=== PATIENT | female | born 1975 | race Caucasian/White ===

== ENCOUNTER 2019-04-20 04:58 | Inpatient (IN) | payer MEDICARE ==
[~2019-04-20] VITALS: Ht 162.6 cm; Wt 90.7 kg
--- NOTE | ~2019-04-20 | CON ---
[address] [address] CONSULTATION Name: LEXUSMANUEL M Room: [address] IN ..#: [id number] Admission: 04/20/19 Attend Phys: Gill Braga Discharge: Date of : 77 Report #: [id number] THIS REPORT FOR: //name// CC: FAM physician/PCP Mitch Zapata DATE OF SERVICE: 04/20/2019 CONSULTING PHYSICIAN: Mitch Zapata MD. REASON FOR CONSULTATION: End-stage kidney disease. HISTORY OF PRESENT ILLNESS: A 44-year-old female with a history of end-stage kidney disease, on hemodialysis Friday, Friday and Friday in [place]. Due to holiday schedule, her last dialysis was on Friday. Her next dialysis was scheduled for today. She comes in with severe left knee pain and evidence of a distal femur fracture. Plan is for her to undergo surgery today. 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 She currently does not have any other complaints other than pain related to the fracture. REVIEW OF SYSTEMS: Constitutional, psych, heme, eyes, ENT, respiratory, cardiac, GI, , endocrine, all negative except as documented above. PAST MEDICAL HISTORY: History of seizures, hysterectomy, and history of a nephrectomy. MEDICATIONS: Reviewed. SOCIAL HISTORY: Positive for tobacco. FAMILY HISTORY: Not pertinent to current clinical case. PHYSICAL EXAMINATION: VITAL SIGNS: Blood pressure 114/66, respirations 18, and temperature 37.3, pulse 102. GENERAL: No acute distress. EYES: Open. EARS: Externally normal. NECK: Supple. CARDIOVASCULAR: Regular rate. LUNGS: No crackles. ABDOMEN: Soft. MUSCULOSKELETAL: Left knee tender. PSYCHIATRIC: Awake, alert. LABORATORY DATA: White cell count 4.8, hemoglobin 10.1, [place] [address] CONSULTATION Name: MANUEL ALBERTS Gill Room: [address]#: [id number] Admission: 04/20/19 Attend Phys: Gill Braga Discharge: Date of : 77 Report #: [id number], potassium 4.4, chloride 96, bicarbonate 26, BUN 85, creatinine 10.1, glucose 126, calcium 6.7, albumin 2.9. ASSESSMENT AND PLAN: 1. End-stage kidney disease, on hemodialysis Friday, Friday and Friday in [place]. Due to the holiday schedule, she dialyzed on Friday and then was to dialyze again on Friday this week. She is currently dialyzing in the [place], [place] while visiting family here. 2. Femur fracture. Orthopedics is evaluating. 3. Anemia. 4. Hypocalcemia. Phosphorus value not available. 5. Hypoalbuminemia with an albumin of 2.9. PLAN: The patient is to undergo surgery today. We will schedule a short dialysis to help remove uremic toxins and minimize risk of bleeding. We would avoid morphine for pain management. Fentanyl would be a good choice. We will follow again tomorrow to see if she needs any additional dialysis. Otherwise, the next dialysis will be on . Renally dose all medications. We will follow along with you. Thank you for requesting my opinion in the care and management of this patient. By: [id number] Martínez MD /nt
--- NOTE | ~2019-04-20 | CON ---
[address] [address] CONSULTATION Name: MANUEL ALBERTS Room: [address] IN M.R.#: [id number] Admission: 04/20/19 Attend Phys: Gill Braga Discharge: 04/21/19 Date of : 77 Report #: [id number] THIS REPORT FOR: //name// CC: KEVIN physician/PCP Mitch Zapata DATE OF SERVICE: 04/21/2019 HISTORY OF PRESENT ILLNESS: This 44-year-old female was seen complaining of severe pain about her left distal femur. She related that she had a severe seizure, fallen and sustaining a fracture of her left distal femur. She was brought to the Emergency Room at [facility] where she was advised to become hospitalized for acute care. She related that she has suffered with a multitude of medical problems, which included her kidney disease as a child. This necessitated a nephrectomy. She has suffered with a seizure disorder and related that she tends to have increased seizures with fevers or in stressful situations. She is on dialysis. She has chronic low platelet count and chronic low albumin level. 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 She has other multiple medical problems. She was tender about the left femur today. She complained of pain upon any motion or manipulation. Her x-rays and CT scan were reviewed. She was noted to have a displaced fracture of her left medial femoral condyle. She was advised that she will require an open reduction and internal fixation of this fracture. She will not be able to undergo any surgical procedure until she is medically cleared. She will require a medical TUNA prior to surgery, which would include blood products to address her low platelet count and low albumin level. She also has run a fever, which will need to be addressed. She was advised that it is my feeling that she belongs at a level 1 facility where multiple specialists may evaluate and treat her for her medical problems. Once she is medically cleared, then her left femoral fracture could be addressed. All of her questions were answered with the patient and her relatives. We will attempt to transfer her to a level 1 type facility. DIAGNOSIS: Displaced fracture of the left medial femoral condyle. Thank you for the opportunity of seeing this very interesting consultation. By: [id number] Gregorio MD /bryan
--- NOTE | ~2019-04-20 | CON ---
[address] [address] CONSULTATION Name: MANUEL ALBERTS Room: [address] IN .R.#: [id number] Admission: 04/20/19 Attend Phys: Gill Braga Discharge: Date of : 77 Report #: [id number] THIS REPORT FOR: //name// CC: KEVIN physician/PCP Mitch Zapata DATE OF SERVICE: 04/20/2019 HISTORY OF PRESENT ILLNESS: This is a 44-year-old female patient who is a pretty reluctant historian. She has not cooperated during the history or physical examination. She has a pretty supportive family. She tells me she is from [place]. She sees a neurologist there. She has been diagnosed with what she described as atypical seizure. I am not sure whether they are pseudoseizure or some other atypical seizure. She was supposed to be on Keppra. She is a dialysis patient. She looks like she was on 1000 mg daily of Keppra. She has stopped taking her Keppra about a week ago. Family thinks she had a seizure today and then fell. She has a left femur fracture. She is going to have surgery, but there is a long story which the nurses tell me and for which nurses think that she is going to be transferred to another facility. REVIEW OF SYSTEMS: Positive for dialysis. She has a fractured femur. She has a history of seizure. I am not sure what kind of seizure she has. She has a history of HIT. She has a history of anemia, some hypocalcemia and she is going to have surgery. I tried my best to do the 14-point review of systems. She was extremely uncooperative and kept getting repeatedly angry rather than giving the history properly. When she came in, her calcium was only 6.7, albumin is somewhat low at 2.9, but the calcium was markedly low. This is all the 14-point review of system I could get. PAST MEDICAL HISTORY: Positive for seizure. I do not know what kind of seizures they are. FAMILY HISTORY: Unremarkable. SOCIAL HISTORY: She got angry when I asked her whether she drinks alcohol or not, but ultimately said she does not. PHYSICAL EXAMINATION: NEUROLOGIC: The patient's examination was limited because of her difficulty. She is alert. She is responsive. She can follow simple commands when she wants to. Her speech looks intact. She did not cooperate with memory or fund of knowledge examination. Cranial nerve examination indicates she has vision problems, but that is her baseline. I cannot examine the left leg and she did not cooperate there, but rest of the extremities she can move. She refused to cooperate with the rest of the neuromuscular examination, fundus examination, etc. Her hearing [place] [address] CONSULTATION Name: MANUEL ALBERTS Gill Room: [address] IN .R.#: [id number] Admission: 04/20/19 Attend Phys: Gill Braga Discharge: Date of : 77 Report #: [id number] VITAL SIGNS: Blood pressure is 115/57, respirations 18, pulse is 126, and temperature is 103.1. LABORATORY DATA: White count is 4.8 and GFR is 4. She does not have any imaging study of the brain. IMPRESSION: Breakthrough seizure because of noncompliance. From history, I cannot tell if all her seizures are epileptic seizure or some of them are nonepileptic events. In any event, we will put her back on Keppra, we will put her on the same dose she was on at home. At first she refused point blank any further testing. Subsequently, she agreed for EEG and we will do that and if she agrees for further testing later on, we will try to do that. Her electrolyte abnormalities need to be corrected, especially calcium and I will also order magnesium. Thank you very much for this referral and if you have any question, please feel free to contact me. By: [id number] Rubio MD /bryan
--- NOTE | ~2019-04-20 | EEG ---
[address] [address] EEG STUDY REPORT Name: MANUEL ALBERTS Gill Room: [address] IN M.R.#: [id number] Admission: 04/20/19 Attend Phys: Gill Braga Discharge: 04/21/19 Date of : 77 Report #: [id number] THIS REPORT FOR: //name// CC: KEVIN physician/PCP Mitch Zapata DATE OF SERVICE: 04/21/2019 This patient is being evaluated for the possibility of seizure. EEG was done by placing the electrode by standard 10-20 system of electrode placement. Both referential and sequential montages were used for recording. Background activity in this patient's EEG is about 9 Hz and 30 microvolts. The patient went to sleep and that is associated with bilateral slowing and vertex sharp waves. Photic stimulation was unremarkable. Throughout the record, no active epileptiform activity was noticed. IMPRESSION AND PLAN: This patient's EEG does not demonstrate any active epileptiform activity. It might be mentioned that EEG can be normal in a patient with a seizure disorder. Thank you very much for this referral. By: [id number] Rubio MD /bryan
[2019-04-20] MEDS ORDERED: PROMETHAZINE PO (05:11)
[2019-04-20] MEDS ORDERED: JANTOVEN5 MG PO (05:12)
[2019-04-20] MEDS ORDERED: ZONEGRAN25 MG PO (05:12)
[2019-04-20] MEDS ORDERED: PREGABALIN75 MG PO (05:13)
[2019-04-20] MEDS ORDERED: LEVO-T100 MCG PO (05:13)
[2019-04-20 05:40] LABS: ABSOLUTE BASOPHILS 0.1 thou/uL (0.0-0.2); ABSOLUTE EOSINOPHILS 0.1 thou/uL (0.0-0.7); ABSOLUTE LYMPHOCYTES 0.7 thou/uL (0.8-5.3); ABSOLUTE MONOCYTES 0.4 thou/uL (0.0-1.2); ABSOLUTE NEUTROPHILS 3.6 thou/uL (1.6-8.1); BASOPHILS 1.2 %; EOSINOPHILS 1.2 %; HEMATOCRIT 29.5 % (37.0-47.0); HEMOGLOBIN 10.1 gm/dL (12.0-15.0); LYMPHOCYTES 14.4 %; MCH 31.3 pg (26.0-34.0); MCHC 34.3 g/dL (28.0-37.0); MCV 91.1 fL (80.0-100.0); MONOCYTES 9.1 %; MPV 11.5 fl. (7.2-11.1); NUCLEATED RBCS 0 /100WBC; PLATELET COUNT* 63 thou/uL (150-400); POLYS 74.1 %; RBC 3.24 mil/uL (4.20-5.00); WBC 4.8 thou/uL (4.0-11.0)
[2019-04-20 05:53] LABS: APTT 39.6 Seconds (25.0-31.3); INR 1.9; PROTIME 19.2 Seconds (9.20-11.50)
[2019-04-20 05:58] LABS: CALCIUM 6.7 mg/dL (8.5-10.1); CREATININE 10.1 mg/dL (0.6-1.3); POTASSIUM 4.4 mmol/L (3.5-5.1)
[2019-04-20 06:01] LABS: ALBUMIN 2.9 g/dL (3.4-5.0); TOTAL BILIRUBIN 0.3 mg/dL (<0.1-1.0); TOTAL PROTEIN 6.8 g/dL (6.4-8.2)
[2019-04-20 07:32] VITALS: BP 117/62
--- NOTE | 2019-04-20 08:40 | NUR ---
PAGED DR. BLAKE WITH ORTHO. PT TO HAVE CT SCAN. NEED TO FIND OUT ABOUT TRACTION WHILE IN CT
--- NOTE | 2019-04-20 09:15 | NUR ---
PT TAKEN OUT OF TRACTION TO GO TO CT. DR. BLAKE AT BEDSIDE
[2019-04-20 10:20] VITALS: BP 74/47
[2019-04-20 12:34] VITALS: BP 114/66
--- NOTE | 2019-04-20 14:22 | EKG ---
[place] [address] ELECTROCARDIOGRAM REPORT Name: MANUEL ALBERTS Room: [address] ADM IN M.R.#: [id number] Admission: 04/20/19 Attend Phys: Gill Braga Discharge: Date of : 77 Report #: [id number] THIS REPORT FOR: //name// [facility] ED Test Date: 2019-04-20 Test Time: 05:13:47 Pat Name: MANUEL ALBERTS Department: Room: [facility] Gender: F [place]: [place] : 1975 Requested By: Abel Desir Order Number: [id number] MD: Allan Cedeno Measurements Intervals Loda Rate: 99 P: 72 SD: 200 QRS: 36 QRSD: 77 T: 57 QT: 338 QTc: 434 Interpretive Statements Sinus rhythm Borderline prolonged SD interval Low voltage, precordial leads Abnormal R-wave progression, early transition Artifact in lead(s) II,aVR,aVL,aVF No previous ECG available for comparison Electronically Signed On 04-20-2019 14:21:51 SHOE MAKER by Allan Cedeno [email or web address] <ELECTRONICALLY SIGNED> By: Allan Cedeno MD, FACC 04/20/19 1421 0513 0513 Allan Cedeno MD, [facility] /EPI
[2019-04-20 15:47] VITALS: BP 115/57
--- NOTE | 2019-04-20 16:00 | NUR ---
PT.TO BE TRANSFERRED TO ANOTHER ACUTE CARE FACILITY. PER ,RESEARCH OR [facility]. OSI CONSULTED. PT.FAMILY UNFAVORABLE WITH CERTAIN IN GROUP. THIS THEREFORE REFUSED TO SEE PT. WELL REMAINDER OF GROUP. SECOND ORTHO GROUP IN HOSPITAL NOT RESPONDING TO PAGE. CALLED [facility] TRANSFER TEAM. FAXED CLINICALS SO RESEARCH COULD REVIEW. TEAM SAID BEDS ARE TIGHT AND MAY NOT BE ABLE TO TRANSFER UNTIL TOMORROW, IF THEN. TRIED [facility] TRANSFER. RN SAID ALL CAMPUS'S ARE ON DIVERSION. AMBULANCE AND EMTALA FORM STARTED AND IN FRONT OF CHART. UPDATED NSG.SUPSERVISOR.
[2019-04-20 18:34] LABS: INFLUENZA A ANTIGEN Negative (Negative); INFLUENZA B ANTIGEN Negative (Negative)
--- NOTE | 2019-04-20 18:34 | NUR ---
ASSESSMENT COMPLETE. PT ADMITTED WITH FEMUR FRACTURE. [facility]THRO CONSULT AND REQUESTED PATIENT TRANSFER TO ORTHO TRAUMA SURGEON. PT GIVEN PRN PAIN MEDICATION NEEDED. LEFT LEG IN BUCKS TRACTION. RENAL DIET. DIALYSIS DONE TODAY PER DR GRUBBS. PT IS ON ROOM AIR, VSS. FEVER THIS AFTERNOON, TYLENOL AND IBUPROFEN GIVEN. INFECTIOUS DISEASE AND NEURO CONSULTS. H1N1 AND FLU SWABS COMPLETED. SEIZURE PRECAUTIONS IN PLACE. IV IN RIGHT AC AND RIGHT WRIST, SL. SEE ASSESSMENT AND VITALS FOR OTHER DETAILS. CALL LIGHT WITHIN REACH, WILL CONTINUE PLAN OF CARE
[2019-04-20 20:00] VITALS: BP 105/46
[2019-04-20 23:18] LABS: BE 5.8 mmol/L (-2 to +3); pH 7.371 (7.340-7.450)
[2019-04-20 23:20] LABS: PCO2 56.6 mmHg (35.0-45.0); PO2 406.2 mmHg (75.0-100.0)
[2019-04-21 03:08] VITALS: BP 118/94
--- NOTE | 2019-04-21 06:52 | NUR ---
PATIENT WAS HAVING INCREASED PAIN THIS EVENING DILAUDID 2MG WAS GIVEN AT 2140. AT ABOUT 2220 SOUNDED LIKE SHE WAS CRYING BUT WHEN THIS NURSE WENT IN THERE PATIENT WAS SLEEPING AND HER BREATHING SOUNDED LIKE STIDOR. SATS WERE CHECKED AND PATIENT WAS SATTING 48% ON ROOM AIR. RAPID RESPONSE WAS CALLED. PATIENT CAME UP TO 100% ON NON REBREATHER AT 15L. NARCAN WAS GIVEN PER DR. SMALLS. PATIENT WOKE UP SCREAMING IN PAIN. EXPLAINED TO PATIENT THAT WE HAD TO GIVE HER NARCAN CAUSE SHE HAD TO MUCH PAIN MEDICATION AND COULD NOT GIVE HER MORE PAIN MEDICATION AT THIS TIME. ATIVAN 1 MG WAS GIVEN TO HELP CALM THE PATIENT DOWN AND PATIENT WENT BACK TO SLEEP. AFTER THE NARCAN PATIENT SAT WAS BACK IN THE MID 90'S ON RA. NORMAL SALINE WAS STARTED AT 75 ML/HR TO HELP WITH LOW BP. WILL CONTINUE TO MONITOR.
[2019-04-21 07:21] VITALS: BP 88/51
--- NOTE | 2019-04-21 07:41 | NUR ---
PATIENT WAS UPSET MOST OF THE NIGHT THAT WE COULD NOT GIVE HER ANY MORE DILAUDID. PATIENT WAS CHANGED TO FENTANYL AND PATIENT STATED IT WASNT HELPING AT ALL CALLED DR FALL. DOCTOR WOULD ONLY INCREASED THE FENTANYL. PATIENT STILL UPSET AND STATED SHE DID NOT WANT THE FENTANYL AT ALL. PATIENT WAS GIVEN ATIVAN TWICE TO HELP WITH ANXIETY. IV FLUIDS WERE INFUSING AT 75 ML/HR. BP REMAINS SOFT AND PATIENT HAS BEEN RUNNING A FEVER ALL NIGHT. TYLENOL AND IBUPROFEN WERE ALTERNATED. WILL CONTINUE TO MONITOR.
[2019-04-21 11:00] VITALS: BP 93/55
--- NOTE | 2019-04-21 17:30 | NUR ---
ASSESSMENT COMPLETE. PT TRANSFERRED TO AT 1730. PT TRANSFERRED WITH AMBULANCE. REPORT GIVEN TO NURSE AT . ALL BELONINGS SENT WITH FAMILY. SEE ASSESSMENT AND VITALS FOR OTHER DETAILS.
--- NOTE | 2019-04-21 17:31 | NUR ---
PROVIDER NOTIFIED OF PATIENT TRANSFER TO [facility]
[2019-04-22 07:06] LABS: HEPATITIS B SURFACE AG Negative (Negative)
--- NOTE | 2019-04-22 12:19 | CON ---
[address] [address] CONSULTATION Name: LEXUSMANUEL M Room: [address] IN M.R.#: [id number] Admission: 04/20/19 Attend Phys: Gill Braga Discharge: 04/21/19 Date of : 77 Report #: [id number] THIS REPORT FOR: //name// CC: KEVIN physician/PCP Mitch Zapata DATE OF SERVICE: 04/21/2019 INFECTIOUS DISEASE CONSULTATION ATTENDING PHYSICIAN: Dr. Zapata. REASON FOR EVALUATION: Fevers. HISTORY OF PRESENT ILLNESS: Chart reviewed, patient examined. This is a 44-year-old woman with history of previous bilateral nephrectomies as well as cystectomy, therefore she is on dialysis, who has known history of seizures, apparently was experiencing one fell and broke the distal aspect of her left femur, felt to be a complicated situation. She was admitted tentatively, is planned to undergo surgery. In the interim was noted to have fevers, which have been high grade. On questioning, she states she had fevers earlier in the week. She states multiple members of her family as well, attributed to a viral infection. She denies any significant breathing difficulties. She has had somewhat of a cough and suspects perhaps sinus related posterior drainage. Denies any abdominal-related complaints. Chest x-ray was otherwise unremarkable. White count was normal at 4.8. Procalcitonin 0.18. Lactic acid 1.2. Influenza antigen was negative. Blood cultures are sterile thus far. Empirically placed on antimicrobial therapy with daptomycin as well as piperacillin and tazobactam given a single dose of daptomycin. ALLERGIES: TO KETAMINE, COMPAZINE, VERSED, NUBAIN, VANCOMYCIN AND LEVAQUIN. PAST MEDICAL HISTORY: As noted above, bilateral nephrectomy, cystectomy, seizures, previous hysterectomy. SOCIAL HISTORY: Smokes cigarettes. No illicit drug use. No alcohol use. FAMILY HISTORY: Noncontributory. REVIEW OF SYSTEMS: Otherwise, unremarkable 10-point review of systems. PHYSICAL EXAMINATION: GENERAL: She is alert, cooperative, appropriate. She has mild distress. She is lucid. VITAL SIGNS: T-max 102.4, more recently in the normal range, pulse 99-100, systolic blood pressure in the 80s to [place] [address] CONSULTATION Name: LAURIE ALBERTSSukh Garland Room: [address]#: [id number] Admission: 04/20/19 Attend Phys: Gill Braga Discharge: 04/21/19 Date of : 77 Report #: [id number] HEENT: Normocephalic. Extraocular muscles intact. NECK: Supple. LUNGS: Generally clear to auscultation. HEART: Regular. I do not appreciate a murmur. ABDOMEN: Soft, nontender, nondistended. There are no peritoneal signs. GENITOURINARY AND RECTAL: Deferred. LABORATORY DATA: Blood cultures sterile thus far. Most recent ABGs, pH 7.371, pCO2 of 56.6, pO2 of 406.2 on 15 liters nonrebreather. TSH of 0.009. Vitamin B of 460. Influenza antigen was negative. CT lower extremity showed distal femur and her condylar fracture with extension to the medial aspect of the distal femoral metadiaphysis. CBC with white count 4.8, H and H 10.1 and 29.5, platelets of 63. ASSESSMENT: Fevers, seemingly has preceded the acute trauma which may have been in part contributed to the seizure. She is suggested perhaps an infectious etiology with a familial exposure, several members have been exhibiting the same pattern. She is not overtly toxic and may favor an initial viral etiology. I would be concerned about secondary bacterial infection including sinusitis. We will check CT of the sinuses. We will continue empiric therapy, redose the daptomycin. Noted plans for possible transfer. <ELECTRONICALLY SIGNED> By: Bobo Roche MD 04/22/19 1219 1239 [id number] Roche MD /nt
[2019-04-25 22:06] LABS: ADENOVIRUS Negative (Negative); INFLUENZA A Negative (Negative); INFLUENZA B Positive (Negative); METAPNEUMOVIRUS Negative (Negative); PARAINFLUENZA 1 Negative (Negative); PARAINFLUENZA 2 Negative (Negative); PARAINFLUENZA 3 Negative (Negative); RSV A Negative (Negative); RSV B Negative (Negative)
== END 2019-04-21 17:30 | disposition short-term general hospital (02) | DRG 533 ==
LOC: M.ERS 04:58 → M.3W 06:28 → M.TBA-ER 06:28 → M.3W 10:24
PROVIDERS: Family Medicine; Internal Medicine Nephrology; ADMIT Internal Medicine
DX: S72.432A Displaced fracture of medial condyle of left femur, initial encounter for closed fracture (principal); N18.6 End stage renal disease; I12.0 Hypertensive chronic kidney disease with stage 5 chronic kidney disease or end stage renal disease; E44.1 Mild protein-calorie malnutrition; G40.909 Epilepsy, unspecified, not intractable, without status epilepticus; W18.39XA Other fall on same level, initial encounter; D64.9 Anemia, unspecified; E83.51 Hypocalcemia; E88.09 Other disorders of plasma-protein metabolism, not elsewhere classified; F17.210 Nicotine dependence, cigarettes, uncomplicated; D75.82 Heparin induced thrombocytopenia (HIT); Y93.89 Activity, other specified; Z99.2 Dependence on renal dialysis; Y92.89 Other specified places as the place of occurrence of the external cause; Y99.8 Other external cause status; Z90.5 Acquired absence of kidney; Z90.6 Acquired absence of other parts of urinary tract; Z90.710 Acquired absence of both cervix and uterus; Z79.01 Long term (current) use of anticoagulants; Z79.899 Other long term (current) drug therapy; Z88.1 Allergy status to other antibiotic agents; Z88.8 Allergy status to other drugs, medicaments and biological substances; Z68.34 Body mass index [BMI] 34.0-34.9, adult; Z91.14 Patient's other noncompliance with medication regimen